=== PATIENT | male | born 1990 | race Caucasian/White ===

== ENCOUNTER 2021-02-06 15:39 | Emergency (ER) | payer BC, SELFPAY ==
--- NOTE | ~2021-02-06 | XR_ITS ---
EXAMINATION: XR chest 1V portable 02/06/2021 18:53 INDICATION: Shortness of breath. Sharp chest pain PROCEDURE: AP portable chest COMPARISON: No prior studies for comparison. FINDINGS: The lungs are clear. The cardiomediastinal silhouette is within normal limits. There are no pleural effusions. There is no pneumothorax suspected. IMPRESSION: 1: NO ACUTE CARDIOPULMONARY DISEASE. Reviewed, dictated and finalized at location A.
[2021-02-06 15:47] VITALS: BP 162/96; PULSE 89; RESP 16; TEMP 36.5; O2SAT 100
[2021-02-06 17:38] VITALS: BP 138/73; PULSE 89; RESP 18; TEMP 36.5; O2SAT 99
[2021-02-06] MEDS: KETOROLAC (*BKC) 60 MG/2 ML VIAL IM (20:12)
--- NOTE | 2021-02-06 20:45 | ED.GENADULT ---
HPI - General Adult General Chief complaint: Extremity Injury, Upper Stated complaint: left shoulder pain Time Seen by Provider: 02/06/21 18:03 Source: patient Mode of arrival: ambulatory Limitations: no limitations History of Present Illness HPI narrative: 30-year-old male 2 days ago he started to have pain in the upper left posterior chest and shoulder area No particular injury or inciting cause He does not have any neck pain and his symptoms are not increased by neck movements The shoulder upper back feel sort of pushing on but he has full range of motion of the shoulder in all directions Sometimes he feels like there may be a catch that keeps him from taking a deep breath but he has no cough no fever no shortness of breath Related Data Allergies Allergy/AdvReac Type Severity Reaction Status Date / Time No Known Allergies Allergy Verified 05/26/12 20:36 Review of Systems Review of Systems: All systems reviewed & are unremarkable except as noted in HPI and below Constitutional: Constitutional: Reports no additional constitutional complaints, Denies chills, Denies fever(s) and Denies headache(s) ENT: Denies headache(s) and Denies sore throat Cardiovascular: Cardiovascular: Reports chest pain and Denies dyspnea Respiratory: Respiratory: Denies cough, Denies dyspnea and Denies wheezing Gastrointestinal: Gastrointestinal: Denies abdominal pain, Denies diarrhea, Denies nausea and Denies vomiting Genitourinary: Genitourinary: Denies dysuria and Denies urinary frequency Musculoskeletal: Musculoskeletal: Reports back pain, Denies deformity, Reports arthralgias, Denies joint swelling, Reports muscle cramps and Denies numbness Integumentary/Breasts: Skin/Breast: Denies rash and Denies wounds Neurologic: Denies headache(s), Denies focal weakness and Denies numbness Psychiatric: Psychiatric: Reports no additional psychiatric complaints Endocrine: Endocrine: Reports no additional endocrine complaints Hematologic/Lymphatic: Hematologic/Lymphatic: Reports no additional hematologic/lymphatic complaints Allergic/Immunologic: Allergic/Immunologic: Reports no additional allergic/immunologic complaints Exam Const: General: cooperative, healthy appearing, no acute distress and alert Orientation/consciousness: patient oriented x3 (alert) HENMT: Head: normal to inspection, normocephalic, atraumatic, no contusions and no hematomas Ears: external ears normal General nose exam: no epistaxis Eyes: Conjunctivae: conjunctivae normal EOM: EOMs intact bilaterally Neck: Neck: normal visual inspection, supple and no JVD Other: Full range of motion all directions, no pain, no radicular signs or symptoms elicited Chest: Chest palpation & inspection: normal inspection of the chest and no tenderness Other: Chest/back/ribs did not have reproducible pain with palpation Resp: Effort & Inspection: normal respiratory effort and not labored Auscultation: clear to auscultation bilaterally and other (BS =) Cardio: Rate: regular rate Rhythm: regular rhythm Heart sounds: no murmurs Skin: General skin exam: normal color and no rashes or lesions noted Neuro: General: patient oriented x3 (alert) and moves all extremities Speech: normal speech Extrem: General: normal to inspection Other: Left shoulder, no deformity, no tenderness, full range of motion all directions and pain-free Psych: Affect: normal affect Course Vital Signs Vital signs: Vital Signs Temperature 36.5 C 02/06/21 15:47 Pulse Rate 89 02/06/21 15:47 Respiratory Rate 16 02/06/21 15:47 Blood Pressure 162/96 H 02/06/21 15:47 Pulse Oximetry 100 02/06/21 15:47 Temperature 36.5 C 02/06/21 17:38 Pulse Rate 89 02/06/21 17:38 Respiratory Rate 18 02/06/21 17:38 Blood Pressure 138/73 02/06/21 17:38 Pulse Oximetry 99 02/06/21 17:38 Medical Decision Making Vital Signs Vital Signs: Vital Signs Temperature 36.5 C 02/06/21 15:47
[2021-02-06 21:06] VITALS: BP 134/74; PULSE 81; RESP 18; O2SAT 98
== END 2021-02-06 21:08 | disposition home or self-care (01) ==
PROVIDERS: Emergency Provider Emergency Medicine
DX: S29.012A Strain of muscle and tendon of back wall of thorax, initial encounter (principal); X58.XXXA Exposure to other specified factors, initial encounter
CPT/HCPCS: 71045; 96372; 99283; J1885